=== PATIENT | female | born 1945 | race Caucasian/White ===

== ENCOUNTER 2021-08-11 07:31 | Emergency (ER) | payer OTHER ==
[~2021-08-11] VITALS: Ht 154.9 cm; Wt 50.8 kg
[2021-08-11 07:35] VITALS: BP 178/117
--- NOTE | 2021-08-11 07:37 | NUR ---
BIBA TO BED 8.
--- NOTE | 2021-08-11 07:47 | NUR ---
76/F BIBA WITH C/O NAUSEA AND VOMITING SINCE 6PM YESTERDAY. 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 PATIENT STATES SHE HAS BEEN FEELING WEAK AND LACK OF APPETITE. REPORTS A "FEW EPISODES OF CLEAR VOMIT" DENIES ABDOMINAL PAIN, N/V/D AT THIS TIME BUT STATES SHE IS WORRIED THE SYMPTOMS WILL RETURN. DENIES CP, SOB, URINARY SYMPTOMS.
[2021-08-11] MEDS ORDERED: NACL 0.9% 1,000 ML IV SCH (07:55)
[2021-08-11] MEDS ORDERED: METOCLOPRAMIDE 10 MG/2 ML INJ VIAL IVP ONE (08:30)
[2021-08-11 08:36] LABS: APPEARANCE,URINE CLEAR (CLEAR); BILIRUBIN,URINE NEGATIVE (NEGATIVE); BLOOD, URINE 1+ (NEGATIVE); COLOR,URINE YELLOW (YELLOW); LEUKOCYTE ESTERASE ,URINE NEGATIVE (NEGATIVE); NITRITE, URINE NEGATIVE (NEGATIVE); PH,URINE 7.5 (5.0-9.0); UGLUCOSE NEGATIVE (NEGATIVE)
[2021-08-11 08:41] LABS: WBC,URINE 0-5 /HPF (0-5)
[2021-08-11 09:06] LABS: ALBUMIN 3.6 g/dL (3.4-5.0); ANION GAP 19.1 (8-16); ASPARTATE AMINOTRANSFERASE 15 U/L (15-37); CARBON DIOXIDE 21.2 mmol/L (21-32); CHLORIDE 102 mmol/L (98-107); CREATININE 1.4 mg/dL (0.6-1.3); GLUCOSE 106 mg/dL (74-106); LIPASE 119 U/L (73-393); POTASSIUM 3.3 mmol/L (3.5-5.1); SODIUM SERUM 139 mmol/L (136-145); TOTAL BILIRUBIN 0.6 mg/dL (0.0-1.0); UREA NITROGEN, BLOOD 14 mg/dL (7-18)
[2021-08-11] MEDS ORDERED: METO50TA99 PO (09:14)
[2021-08-11] MEDS ORDERED: SYN.05 PO (09:14)
[2021-08-11] MEDS ORDERED: [UNRECOGNIZED DRUG - CODE] PO (09:14)
[2021-08-11] MEDS ORDERED: POTA10TA71 PO (09:14)
[2021-08-11] MEDS ORDERED: RIVA20TA PO (09:14)
[2021-08-11] MEDS ORDERED: FURO-570 PO (09:14)
[2021-08-11] MEDS ORDERED: AMIO100T3 PO (09:14)
[2021-08-11] MEDS ORDERED: SERT50TA PO (09:14)
[2021-08-11] MEDS ORDERED: ATOR20TA PO (09:14)
[2021-08-11] MEDS ORDERED: DILT30TA18 PO (09:14)
[2021-08-11] MEDS ORDERED: METOPROLOL 5 MG/5 ML VIAL IVP ONE ×2 (09:15→11:15)
[2021-08-11 09:23] LABS: BASOPHILS # (AUTO) 0.1 K/uL (0.00-0.22); BASOPHILS % (AUTO) 0.8 % (0.0-2.0); EOSINOPHILS # (AUTO) 0.1 K/uL (0-0.4); EOSINOPHILS % (AUTO) 0.6 % (0.0-4.0); HEMATOCRIT 36.2 % (36-48); HEMOGLOBIN 11.4 g/dL (12.0-16.0); LYMPHOCYTES # (AUTO) 1.2 K/uL (2.5-16.5); LYMPHOCYTES % (AUTO) 12.8 % (20.5-51.1); MEAN CORPUSCULAR HEMOGLOBIN 20 pg (27-31); MEAN CORPUSCULAR HGB CONC 32 g/dL (33-37); MEAN CORPUSCULAR VOLUME 64.9 fL (80-94); MONOCYTES # (AUTO) 0.6 K/uL (0.8-1.0); MONOCYTES % (AUTO) 6.1 % (1.7-9.3); NEUTROPHILS # (AUTO) 7.5 K/uL (1.8-7.7); NEUTROPHILS % (AUTO) 79.7 % (42.2-75.2); PLATELET COUNT (AUTO) 301 K/uL (140-450); RED BLOOD CELL COUNT(AUTO) 5.58 MIL/uL (4.20-5.40); RED CELL DISTRIBUTION WIDTH 19.4 % (11.6-13.7); WHITE BLOOD COUNT (AUTO) 9.4 K/uL (4.8-10.8)
--- NOTE | 2021-08-11 09:30 | NUR ---
Pt ambulated to bathroom with steady gait.
--- NOTE | 2021-08-11 10:10 | NUR ---
pt appears to resting with eyes closed. HOB lowered for comfort. pt on bedside monitor. will continue to monitor.
[2021-08-11] MEDS ORDERED: METOCLOPRAMIDE 10 MG/2 ML INJ VIAL IM ONE (10:15)
[2021-08-11] MEDS ORDERED: LABETALOL 100 MG/20 ML VIAL IVP ONE (12:00)
--- NOTE | 2021-08-11 12:00 | NUR ---
PATIENT AMBULATED TO RESTROOM WITH STEADY GAIT.
--- NOTE | 2021-08-11 13:29 | NUR ---
Patient to be transferred to [facility]. Is being transferred due to INSURANCE REQUEST. Receiving facility has accepting physician and available space. ER physician has signed transfer form. Patient or responsible libertarian has agreed to transfer and signed form. Patient belongings inventoried and will be sent with patient. Copy of nursing notes, lab reports, EKG, Physicians Orders to be sent with patient. Report called to JACKY at receiving facility. [facility] ambulance service has been called for transfer. ETA is 45-60 MIN.
--- NOTE | 2021-08-11 13:32 | NUR ---
PATIENT AMBULATED TO RESTROOM
[2021-08-11] MEDS ORDERED: ENALAPRILAT 2.5 MG/2 ML VIAL IVP ONE (13:35)
--- NOTE | 2021-08-11 13:45 | NUR ---
[facility] BEDSIDE TO TRANSFER PATIENT TO [facility].
[2021-08-11 14:00] VITALS: BP 191/120
== END 2021-08-11 14:00 | disposition short-term general hospital (02) ==
LOC: MED 07:31
DX: R11.2 Nausea with vomiting, unspecified (principal); Z20.822 Contact with and (suspected) exposure to COVID-19; I11.0 Hypertensive heart disease with heart failure; E87.6 Hypokalemia; J44.9 Chronic obstructive pulmonary disease, unspecified; I50.9 Heart failure, unspecified; F17.200 Nicotine dependence, unspecified, uncomplicated; Z95.0 Presence of cardiac pacemaker; Z90.49 Acquired absence of other specified parts of digestive tract; Z98.890 Other specified postprocedural states; Z79.899 Other long term (current) drug therapy
CPT/HCPCS: 36415; 80053; 81001; 83690; 84484; 84703; 85025; 87426; 93005; 96361; 96372; 96374; 96375; 96376; 99284; J2765; J3490; J7030; 81002

== ENCOUNTER 2021-10-15 14:14 | Inpatient (IN) | payer OTHER, SELFPAY ==
[~2021-10-15] VITALS: Ht 154.9 cm; Wt 49.9 kg
[~2021-10-15 14:14] MED LIST: AMIO100T3 PO; ATOR20TA PO; DILT30TA18 PO; FURO-570 PO; METO50TA99 PO; POTA10TA71 PO; RIVA20TA PO; SERT50TA PO; SYN.05 PO; [UNRECOGNIZED DRUG - CODE] PO
--- NOTE | 2021-10-15 15:00 | NUR ---
[facility] TO ER BED 7
[2021-10-15 15:02] VITALS: BP 200/116
--- NOTE | 2021-10-15 15:12 | NUR ---
PT BIB [facility] C/O SOB, COUGH N/V X 1 WEEK PAIN 0/10 [facility] GAVE HHN. PT SKIN IS INTACT, FLUSHED/WARM/DRY; AAOX4, PERRL, UNSTEADY GAIT-S/P SOB; LUNGS BILATERAL RHONCHI AND WHEZZING NOTED, RT CALLED, BREATHING LABORED, BL PERIPHERAL PULSES PRESENT; BS ACTIVE X4, MILD TENDERNESS TO PALPATION. PT STATES 0/10 PAIN AT THIS TIME; VSS; PATIENT POSITIONED FOR COMFORT; HOB ELEVATED; BEDRAILS UP X2; BED DOWN.
--- NOTE | 2021-10-15 15:15 | NUR ---
PSYCHOLOGICAL SCIENCE PROFESSOR CALLED TO BEDSIDE PATIENT PRESENTING WITH SOB RR 24-28 BPM SATURATION 97% ROOM AIR BREATH SOUNDS COARSE RHONCHI BILATERAL HHN THERAPY REQUIRED FOR SECRETION MOBILZATION IMPROVED AERATION AND DECREASED SOB ARIEL VILLANUEVA/RN NOTIFIED
--- NOTE | 2021-10-15 15:20 | NUR ---
ARIEL VILLANUEVA/RN TO ORDER HHN THERAPY OR ADVIS ERMD
[2021-10-15] MEDS ORDERED: ALBUTEROL SULFATE/IPRATROPIU 3 ML SOL IH ONE (15:22)
--- NOTE | 2021-10-15 15:26 | NUR ---
RT AT BEDSIDE.
--- NOTE | 2021-10-15 15:26 | NUR ---
PT BIB [facility] C/O SOB, COUGH N/V X 1 WEEK PAIN 0/10 [facility] GAVE HHN. NKA PMH: COPD, HTN
--- NOTE | 2021-10-15 15:45 | NUR ---
DR VASQUES AT BEDSIDE.
[2021-10-15] MEDS ORDERED: NACL 0.9% 500 ML IV ONE (15:50)
[2021-10-15] MEDS ORDERED: methylPREDNISolone SS 125 MG/2 ML VIAL IVP ONE (15:50)
[2021-10-15] MEDS ORDERED: ONDANSETRON 4 MG/2 ML VIAL IVP ONE (16:10)
[2021-10-15 16:48] LABS: BASOPHILS # (AUTO) 0.1 K/uL (0.00-0.22); BASOPHILS % (AUTO) 0.5 % (0.0-2.0); EOSINOPHILS % (AUTO) 0.1 % (0.0-4.0); HEMATOCRIT 39.4 % (36-48); HEMOGLOBIN 12.5 g/dL (12.0-16.0); LYMPHOCYTES # (AUTO) 1.4 K/uL (2.5-16.5); LYMPHOCYTES % (AUTO) 12.1 % (20.5-51.1); MEAN CORPUSCULAR HEMOGLOBIN 21 pg (27-31); MEAN CORPUSCULAR HGB CONC 32 g/dL (33-37); MEAN CORPUSCULAR VOLUME 67.1 fL (80-94); MONOCYTES # (AUTO) 0.4 K/uL (0.8-1.0); MONOCYTES % (AUTO) 3.7 % (1.7-9.3); NEUTROPHILS # (AUTO) 9.7 K/uL (1.8-7.7); NEUTROPHILS % (AUTO) 83.6 % (42.2-75.2); PLATELET COUNT (AUTO) 331 K/uL (140-450); RED BLOOD CELL COUNT(AUTO) 5.88 MIL/uL (4.20-5.40); RED CELL DISTRIBUTION WIDTH 20.6 % (11.6-13.7); WHITE BLOOD COUNT (AUTO) 11.6 K/uL (4.8-10.8)
[2021-10-15 16:56] LABS: ALBUMIN 3.9 g/dL (3.4-5.0); ANION GAP 22.2 (8-16); ASPARTATE AMINOTRANSFERASE 19 U/L (15-37); CARBON DIOXIDE 21.7 mmol/L (21-32); CHLORIDE 100 mmol/L (98-107); CREATININE 2.2 mg/dL (0.6-1.3); GLUCOSE 154 mg/dL (74-106); LIPASE 172 U/L (73-393); SODIUM SERUM 141 mmol/L (136-145); TOTAL BILIRUBIN 0.6 mg/dL (0.0-1.0); UREA NITROGEN, BLOOD 21 mg/dL (7-18)
[2021-10-15 16:59] LABS: POTASSIUM 2.9 mmol/L (3.5-5.1)
[2021-10-15] MEDS ORDERED: POTASSIUM CHLORIDE 20% 40 MEQ/15 ML UDC PO SCH ×2 (17:00→17:30)
[2021-10-15] MEDS ORDERED: NACL 0.9% 1,000 ML IV ONE (17:10)
[2021-10-15] MEDS ORDERED: MORPHINE SULFATE 2 MG/ML SYR IVP ONE (17:10)
[2021-10-15] MEDS ORDERED: AZITHROMYCIN 500 MG in DEXTROSE 5% 250 ML IV ONE (17:20)
[2021-10-15] MEDS ORDERED: cefTRIAXone 1,000 MG VIAL ONE (17:53)
[2021-10-15] MEDS ORDERED: hydrALAZINE 20 MG/ML VIAL IVP ONE (18:00)
--- NOTE | 2021-10-15 18:00 | NUR ---
PT SOILED WITH BM AND URINE. PT CLEANED, NEW LINEN AND GAWN.
--- NOTE | 2021-10-15 18:30 | NUR ---
PT TO CT VIA [facility].
[2021-10-15] MEDS ORDERED: AZITHROMYCIN 500 MG INJ VIAL IV ONE (18:41)
--- NOTE | 2021-10-15 19:27 | NUR ---
GAVE REPORT TO HELEN CAICEDO.
[2021-10-15] MEDS ORDERED: KCL 20 MEQ/WATER INJ PREMIX 200 ML IV PRN (20:45)
[2021-10-15] MEDS ORDERED: HYDROcodone/APAP 5/325 MG 1 TAB TAB PO PRN (20:45)
[2021-10-15] MEDS ORDERED: MAG SULF 2000 MG/WATER PREMIX 50 ML IV PRN (20:45)
[2021-10-15] MEDS ORDERED: ACETAMINOPHEN 325 MG TAB PO PRN (20:45)
[2021-10-15] MEDS ORDERED: MAGNESIUM OXIDE 400 MG TAB PO PRN (20:45)
[2021-10-15] MEDS ORDERED: ONDANSETRON 4 MG/2 ML VIAL IVP PRN (20:45)
[2021-10-15] MEDS ORDERED: POTASSIUM CHLORIDE 10 MEQ TABER PO PRN (20:45)
[2021-10-15] MEDS ORDERED: hydrALAZINE 20 MG/ML VIAL IVP PRN (20:50)
--- NOTE | 2021-10-16 00:10 | NUR ---
PT'S DIAPER AND LINENS CHANGED. PT STATES SHE IS STILL NAUSEOUS; WAS GIVEN ZOFRAN 2 HRS AGO.
[2021-10-16] MEDS ORDERED: LORazepam 2 MG/ML VIAL IVP PRN (00:50)
[2021-10-16] MEDS ORDERED: PROCHLORPERAZINE 10 MG/2 ML VIAL IVP PRN (00:50)
[2021-10-16] MEDS ORDERED: diphenhydrAMINE 50 MG/ML VIAL IVP ONE (00:50)
[2021-10-16] MEDS ORDERED: ONDANSETRON 4 MG/2 ML VIAL IVP PRN (00:50)
--- NOTE | 2021-10-16 01:51 | NUR ---
PT WAS GIVEN MEDICATION FOR NAUSEA AND TO SLEEP. PT IS NOW SLEEPING COMFORTABLY IN BED. WITH HOB RAISED, RAILS UP X2, AND BED IN LOWEST SETTING.
--- NOTE | 2021-10-16 07:25 | NUR ---
REPORT GIVEN TO YAEL ANDREW
--- NOTE | 2021-10-16 08:00 | NUR ---
WALKED PT TO THE BATHROOM, URINE COLLECTED. LINEN CHANGED.
--- NOTE | 2021-10-16 08:16 | NUR ---
LAB AT BEDSIDE.
[2021-10-16 08:55] LABS: APPEARANCE,URINE CLEAR (CLEAR); BILIRUBIN,URINE NEGATIVE (NEGATIVE); BLOOD, URINE TRACE-I (NEGATIVE); COLOR,URINE YELLOW (YELLOW); LEUKOCYTE ESTERASE ,URINE NEGATIVE (NEGATIVE); NITRITE, URINE NEGATIVE (NEGATIVE); UGLUCOSE 1+ (NEGATIVE)
[2021-10-16] MEDS ORDERED: predniSONE 20 MG TAB PO SCH (09:00)
[2021-10-16 09:05] LABS: BASOPHILS # (AUTO) 0.1 K/uL (0.00-0.22); BASOPHILS % (AUTO) 0.6 % (0.0-2.0); HEMATOCRIT 39.2 % (36-48); HEMOGLOBIN 12.3 g/dL (12.0-16.0); LYMPHOCYTES # (AUTO) 0.5 K/uL (2.5-16.5); LYMPHOCYTES % (AUTO) 3.9 % (20.5-51.1); MEAN CORPUSCULAR HEMOGLOBIN 21 pg (27-31); MEAN CORPUSCULAR HGB CONC 31 g/dL (33-37); MEAN CORPUSCULAR VOLUME 67.5 fL (80-94); MONOCYTES # (AUTO) 0.2 K/uL (0.8-1.0); MONOCYTES % (AUTO) 1.8 % (1.7-9.3); NEUTROPHILS # (AUTO) 11.3 K/uL (1.8-7.7); NEUTROPHILS % (AUTO) 93.7 % (42.2-75.2); PLATELET COUNT (AUTO) 278 K/uL (140-450); RED BLOOD CELL COUNT(AUTO) 5.81 MIL/uL (4.20-5.40); RED CELL DISTRIBUTION WIDTH 20.5 % (11.6-13.7); WHITE BLOOD COUNT (AUTO) 12.1 K/uL (4.8-10.8)
[2021-10-16 09:11] LABS: ALBUMIN 3.8 g/dL (3.4-5.0); ANION GAP 18.7 (8-16); ASPARTATE AMINOTRANSFERASE 20 U/L (15-37); CARBON DIOXIDE 23.1 mmol/L (21-32); CHLORIDE 110 mmol/L (98-107); CREATININE 1.8 mg/dL (0.6-1.3); GLUCOSE 118 mg/dL (74-106); MAGNESIUM 1.9 mg/dL (1.8-2.4); POTASSIUM 3.8 mmol/L (3.5-5.1); SODIUM SERUM 148 mmol/L (136-145); TOTAL BILIRUBIN 0.4 mg/dL (0.0-1.0); UREA NITROGEN, BLOOD 21 mg/dL (7-18)
--- NOTE | 2021-10-16 10:45 | NUR ---
PATIENT HAS BEEN SCREENED AND CATEGORIZED MODERATE NUTRITION RISK. PATIENT WILL BE SEEN WITHIN 3-5 DAYS OF ADMISSION. 10/18/21 10/20/[address]
[2021-10-16] MEDS ORDERED: AZIT250T11 PO (10:49)
[2021-10-16] MEDS ORDERED: PRED20TA5 PO (10:49)
[2021-10-16] MEDS ORDERED: ALBU0.0912 INH (10:49)
--- NOTE | 2021-10-16 12:34 | NUR ---
CALLED AND LEFT A MESSAGE FOR THE SON YAAKOV TO [employer] OPERATOR THE PT. PT HAS DC ORDERS.
--- NOTE | 2021-10-16 12:51 | NUR ---
SPOKE WITH THE SON, HE WILL BE HERE WITHIN 1 HOUR AND 15 MIN WITH HER CLOTHES.
[2021-10-16 12:55] VITALS: BP 181/84
--- NOTE | 2021-10-16 13:09 | NUR ---
PT MOVED FROM ROOM 7 TO ROOM 13
--- NOTE | 2021-10-16 14:24 | NUR ---
Patient discharged with v/s stable. Written and verbal after care instructions given and explained. Patient verbalized understanding. Wheel Chair Assisted with to car. All questions addressed prior to discharge. Advised to follow up with PMD.
--- NOTE | 2021-10-16 14:24 | NUR ---
Bilateral hand IV's discontinued
--- NOTE | 2021-10-16 14:25 | NUR ---
Chart checked and completed. The patient's care was reviewed and supervised by Liss Huang RN.
[2021-10-16] MEDS ORDERED: AZITHROMYCIN 500 MG in DEXTROSE 5% 250 ML IV SCH (18:00)
[2021-10-16] MEDS ORDERED: METOPROLOL 50 MG TAB PO SCH (21:00)
[2021-10-16] MEDS ORDERED: DILTIAZEM 30 MG TAB PO SCH (21:00)
[2021-10-17] MEDS ORDERED: LEVOTHYROXINE 0.025 MG TAB PO SCH (06:30)
[2021-10-17] MEDS ORDERED: RIVAROXABAN 10 MG TAB PO SCH (09:00)
[2021-10-17] MEDS ORDERED: AMIODARONE 200 MG TAB PO SCH (09:00)
[2021-10-17] MEDS ORDERED: SERTRALINE 50 MG TAB PO SCH (09:00)
== END 2021-10-16 14:24 | disposition home or self-care (01) | DRG 191 ==
LOC: MED 14:14 → MTU 20:46
PROVIDERS: ADMIT Internal Medicine; ATTEND Internal Medicine
DX: J44.1 Chronic obstructive pulmonary disease with (acute) exacerbation (principal); N17.9 Acute kidney failure, unspecified; I13.0 Hypertensive heart and chronic kidney disease with heart failure and stage 1 through stage 4 chronic kidney disease, or unspecified chronic kidney disease; N13.2 Hydronephrosis with renal and ureteral calculous obstruction; I50.9 Heart failure, unspecified; K21.9 Gastro-esophageal reflux disease without esophagitis; F17.210 Nicotine dependence, cigarettes, uncomplicated; E78.5 Hyperlipidemia, unspecified; N94.89 Other specified conditions associated with female genital organs and menstrual cycle; E03.9 Hypothyroidism, unspecified; N18.30 Chronic kidney disease, stage 3 unspecified; Z20.822 Contact with and (suspected) exposure to COVID-19; E87.6 Hypokalemia; I48.91 Unspecified atrial fibrillation; Z95.0 Presence of cardiac pacemaker; Q63.1 Lobulated, fused and horseshoe kidney; Z79.899 Other long term (current) drug therapy; Z79.01 Long term (current) use of anticoagulants; Z90.49 Acquired absence of other specified parts of digestive tract
CPT/HCPCS: 36415; 71045; 74018; 80053; 81001; 83605; 83690; 83735; 83880; 85025; 87086; 94640; 96361; 96365; 96366; 96367; 96375; 99285; J0360; J0456; J0696; J0780; J1200; J1644; J2060; J2270; J2405; J2930; J7060; J7512; Q0092; U0003

== ENCOUNTER 2023-11-07 21:09 | Emergency (ER) | payer OTHER ==
[~2023-11-07] VITALS: Ht 165.1 cm; Wt 49.9 kg
[~2023-11-07 21:09] MED LIST changes: +ALBU0.0912 INH; +AZIT250T11 PO; +PRED20TA5 PO
[2023-11-07 21:21] VITALS: BP 150/84; PULSE 84; RESP 22; TEMP 98.1; O2SAT 96
[2023-11-07] MEDS ORDERED: NACL 0.9% 1,000 ML IV ONE (22:10)
[2023-11-07] MEDS ORDERED: METOCLOPRAMIDE 10 MG/2 ML INJ VIAL IVP ONE (22:10)
[2023-11-07 22:48] LABS: BASOPHILS # (AUTO) 0.1 K/uL (0.00-0.22); EOSINOPHILS % (AUTO) 0.4 % (0.0-4.0); HEMATOCRIT 35.4 % (36-48); HEMOGLOBIN 11.3 g/dL (12.0-16.0); LYMPHOCYTES # (AUTO) 2.1 K/uL (2.5-16.5); LYMPHOCYTES % (AUTO) 21.6 % (20.5-51.1); MEAN CORPUSCULAR HEMOGLOBIN 20 pg (27-31); MEAN CORPUSCULAR HGB CONC 32 g/dL (33-37); MEAN CORPUSCULAR VOLUME 63.3 fL (80-94); MONOCYTES # (AUTO) 0.5 K/uL (0.8-1.0); MONOCYTES % (AUTO) 5.5 % (1.7-9.3); NEUTROPHILS # (AUTO) 6.9 K/uL (1.8-7.7); NEUTROPHILS % (AUTO) 71.5 % (42.2-75.2); PLATELET COUNT (AUTO) 333 K/uL (140-450); RED BLOOD CELL COUNT(AUTO) 5.59 MIL/uL (4.20-5.40); WHITE BLOOD COUNT (AUTO) 9.7 K/uL (4.8-10.8)
[2023-11-07 23:06] LABS: LACTIC ACID 1.5 mmol/L (0.4-2.0)
[2023-11-07 23:08] LABS: FLU A ANTIGEN negative (NEGATIVE); FLU B ANTIGEN NEGATIVE (NEGATIVE)
[2023-11-07 23:12] LABS: ANION GAP 18.3 (8-16); CALCIUM 9.6 mg/dL (8.5-10.1); CARBON DIOXIDE 22.9 mmol/L (21-32); CHLORIDE 100 mmol/L (98-107); GLUCOSE 110 mg/dL (74-106); POTASSIUM 3.2 mmol/L (3.5-5.1); SODIUM SERUM 138 mmol/L (136-145); UREA NITROGEN, BLOOD 26 mg/dL (7-18)
[2023-11-07 23:15] LABS: ALANINE AMINOTRANSFERASE 10 U/L (12-78); ALBUMIN 3.7 g/dL (3.4-5.0); ALKALINE PHOSPHATASE 108 U/L (50-136); ASPARTATE AMINOTRANSFERASE 16 U/L (15-37); BILIRUBIN,DIRECT 0.2 mg/dL (0.0-0.3); LIPASE 50 U/L (16-77); TOTAL BILIRUBIN 0.8 mg/dL (0.0-1.0); TOTAL PROTEIN, SERUM 8.4 g/dL (6.4-8.2)
[2023-11-07 23:23] LABS: CREATININE 1.5 mg/dL (0.6-1.3)
[2023-11-08 00:33] VITALS: O2SAT 97
[2023-11-08] MEDS ORDERED: METOCLOPRAMIDE 10 MG/2 ML INJ VIAL IVP ONE (02:30)
[2023-11-08 03:30] VITALS: O2SAT 97
[2023-11-08] MEDS ORDERED: METO-486 PO (03:54)
[2023-11-08 05:31] LABS: APPEARANCE,URINE CLEAR (CLEAR); BILIRUBIN,URINE NEGATIVE (NEGATIVE); BLOOD, URINE NEGATIVE (NEGATIVE); COLOR,URINE YELLOW (YELLOW); LEUKOCYTE ESTERASE ,URINE NEGATIVE (NEGATIVE); NITRITE, URINE NEGATIVE (NEGATIVE); PROTEIN,URINE NEGATIVE (NEGATIVE); UGLUCOSE NEGATIVE (NEGATIVE); UROBILINOGEN,URINE 0.2 EU/dL (0.2 - 1)
[2023-11-08 09:40] VITALS: BP 173/92; PULSE 82; RESP 17; TEMP 98.1; O2SAT 97
== END 2023-11-08 08:32 | disposition home or self-care (01) ==
LOC: MED 21:09
DX: R11.2 Nausea with vomiting, unspecified (principal); Z20.822 Contact with and (suspected) exposure to COVID-19; J44.9 Chronic obstructive pulmonary disease, unspecified; I11.0 Hypertensive heart disease with heart failure; I50.9 Heart failure, unspecified; I48.91 Unspecified atrial fibrillation; Z79.899 Other long term (current) drug therapy; Z79.2 Long term (current) use of antibiotics; Z79.01 Long term (current) use of anticoagulants
CPT/HCPCS: 36415; 71045; 74176; 80048; 80076; 81003; 83605; 83690; 84484; 85025; 87426; 87804; 96361; 96374; 96376; 99285; J2765; J7030

== ENCOUNTER 2024-03-31 21:39 | Observation (INO) | payer OTHER ==
[~2024-03-31] VITALS: Ht 154.9 cm; Wt 40.8 kg
[~2024-03-31 21:39] MED LIST changes: +METO-486 PO
[2024-03-31 21:43] VITALS: BP 124/75; PULSE 96; RESP 18; TEMP 98; O2SAT 98
[2024-03-31 22:42] LABS: BASOPHILS % (AUTO) 0.4 % (0.0-2.0); EOSINOPHILS % (AUTO) 0.3 % (0.0-4.0); HEMATOCRIT 36.2 % (36-48); HEMOGLOBIN 11.1 g/dL (12.0-16.0); LYMPHOCYTES # (AUTO) 1.2 K/uL (2.5-16.5); LYMPHOCYTES % (AUTO) 11.3 % (20.5-51.1); MEAN CORPUSCULAR HEMOGLOBIN 18 pg (27-31); MEAN CORPUSCULAR HGB CONC 31 g/dL (33-37); MEAN CORPUSCULAR VOLUME 56.9 fL (80-94); MONOCYTES # (AUTO) 0.9 K/uL (0.8-1.0); MONOCYTES % (AUTO) 7.9 % (1.7-9.3); NEUTROPHILS # (AUTO) 8.7 K/uL (1.8-7.7); NEUTROPHILS % (AUTO) 80.1 % (42.2-75.2); PLATELET COUNT (AUTO) 334 K/uL (140-450); RED BLOOD CELL COUNT(AUTO) 6.36 MIL/uL (4.20-5.40); RED CELL DISTRIBUTION WIDTH 22.6 % (11.6-13.7); WHITE BLOOD COUNT (AUTO) 10.9 K/uL (4.8-10.8)
[2024-03-31 22:50] LABS: ANION GAP 16.8 (8-16); CALCIUM 9.2 mg/dL (8.5-10.1); CHLORIDE 92 mmol/L (98-107); CREATININE 1.6 mg/dL (0.6-1.3); GLUCOSE 133 mg/dL (74-106); SODIUM SERUM 134 mmol/L (136-145); UREA NITROGEN, BLOOD 25 mg/dL (7-18)
[2024-03-31 22:54] LABS: ALBUMIN 3.8 g/dL (3.4-5.0); BILIRUBIN,DIRECT 0.3 mg/dL (0.0-0.3); TOTAL BILIRUBIN 0.7 mg/dL (0.0-1.0); TOTAL PROTEIN, SERUM 7.6 g/dL (6.4-8.2)
[2024-03-31 22:57] LABS: POTASSIUM 2.8 mmol/L (3.5-5.1)
[2024-03-31] MEDS: POTASSIUM CHLORIDE 10 MEQ TABER PO ONE (23:00)
[2024-03-31] MEDS: METOCLOPRAMIDE 10 MG/2 ML INJ VIAL IM ONE (23:34)
[2024-03-31] MEDS: NACL 0.9% 1,000 ML IV ONE (23:50)
[2024-04-01] MEDS: POTASSIUM CHL 20 MEQ/NACL 0.9% 1,000 ML IV ONE (00:40)
[2024-04-01] MEDS ORDERED: ONDANSETRON 4 MG/2 ML VIAL IVP PRN (02:35)
[2024-04-01] MEDS ORDERED: ACETAMINOPHEN 325 MG TAB PO PRN (02:35)
[2024-04-01] MEDS ORDERED: ATOR10TA PO (06:12)
[2024-04-01] MEDS ORDERED: CARER90 PO (06:27)
[2024-04-01] MEDS: POTASSIUM CHL 20MEQ/D5-NS 1,000 ML IV SCH (06:40)
[2024-04-01] MEDS: METOCLOPRAMIDE 10 MG/2 ML INJ VIAL IVP SCH (06:43)
[2024-04-01 08:10] LABS: APPEARANCE,URINE CLEAR (CLEAR); BILIRUBIN,URINE NEGATIVE (NEGATIVE); BLOOD, URINE TRACE-I (NEGATIVE); COLOR,URINE YELLOW (YELLOW); LEUKOCYTE ESTERASE ,URINE 1+ (NEGATIVE); NITRITE, URINE NEGATIVE (NEGATIVE); PROTEIN,URINE NEGATIVE (NEGATIVE); UGLUCOSE NEGATIVE (NEGATIVE); UROBILINOGEN,URINE 0.2 EU/dL (0.2 - 1)
[2024-04-01 08:17] LABS: BACTERIA,URINE OCCASSIONAL /HPF (None Seen); RBC,URINE 0-5 /HPF (0-5); SQUAMOUS EPITHELIAL CELL,UR 4-10 (MOD) /LPF (0-3 (FEW)); WBC,URINE 0-5 /HPF (0-5)
[2024-04-01] MEDS: FUROSEMIDE 40 MG TAB PO SCH (08:45)
[2024-04-01] MEDS: ATORVASTATIN 20 MG TAB PO SCH (08:45)
[2024-04-01] MEDS: RIVAROXABAN 10 MG TAB PO SCH (08:46)
[2024-04-01] MEDS: AMIODARONE 200 MG TAB PO SCH (08:46)
[2024-04-01] MEDS: LEVOTHYROXINE 0.025 MG TAB PO SCH (08:47)
[2024-04-01] MEDS: SERTRALINE 50 MG TAB PO SCH (08:47)
[2024-04-01] MEDS: METOPROLOL 50 MG TAB PO SCH (08:47)
[2024-04-01] MEDS ORDERED: CRUSHER, PILL MC ONE (08:49)
[2024-04-01 18:57] LABS: BASOPHILS % (AUTO) 0.4 % (0.0-2.0); EOSINOPHILS % (AUTO) 0.4 % (0.0-4.0); HEMATOCRIT 34.3 % (36-48); HEMOGLOBIN 10.2 g/dL (12.0-16.0); LYMPHOCYTES # (AUTO) 1.5 K/uL (2.5-16.5); LYMPHOCYTES % (AUTO) 14.2 % (20.5-51.1); MEAN CORPUSCULAR HEMOGLOBIN 17 pg (27-31); MEAN CORPUSCULAR HGB CONC 30 g/dL (33-37); MEAN CORPUSCULAR VOLUME 58.4 fL (80-94); MONOCYTES # (AUTO) 0.9 K/uL (0.8-1.0); MONOCYTES % (AUTO) 8.8 % (1.7-9.3); NEUTROPHILS # (AUTO) 7.9 K/uL (1.8-7.7); NEUTROPHILS % (AUTO) 76.2 % (42.2-75.2); PLATELET COUNT (AUTO) 270 K/uL (140-450); RED BLOOD CELL COUNT(AUTO) 5.86 MIL/uL (4.20-5.40); RED CELL DISTRIBUTION WIDTH 22.3 % (11.6-13.7); WHITE BLOOD COUNT (AUTO) 10.4 K/uL (4.8-10.8)
[2024-04-01 19:25] LABS: ANION GAP 11.2 (8-16); CALCIUM 7.8 mg/dL (8.5-10.1); CARBON DIOXIDE 28.5 mmol/L (21-32); CHLORIDE 98 mmol/L (98-107); CREATININE 1.2 mg/dL (0.6-1.3); GLUCOSE 128 mg/dL (74-106); POTASSIUM 3.7 mmol/L (3.5-5.1); SODIUM SERUM 134 mmol/L (136-145); UREA NITROGEN, BLOOD 20 mg/dL (7-18)
[2024-04-01] MEDS ORDERED: ONDA-188 SL (19:34)
[2024-04-02 06:39] LABS: BASOPHILS % (AUTO) 0.2 % (0.0-2.0); EOSINOPHILS % (AUTO) 0.4 % (0.0-4.0); HEMATOCRIT 31.1 % (36-48); HEMOGLOBIN 9.4 g/dL (12.0-16.0); LYMPHOCYTES # (AUTO) 1.6 K/uL (2.5-16.5); LYMPHOCYTES % (AUTO) 19.3 % (20.5-51.1); MEAN CORPUSCULAR HEMOGLOBIN 17 pg (27-31); MEAN CORPUSCULAR HGB CONC 30 g/dL (33-37); MEAN CORPUSCULAR VOLUME 57.3 fL (80-94); MONOCYTES # (AUTO) 0.8 K/uL (0.8-1.0); NEUTROPHILS % (AUTO) 71.1 % (42.2-75.2); PLATELET COUNT (AUTO) 231 K/uL (140-450); RED BLOOD CELL COUNT(AUTO) 5.43 MIL/uL (4.20-5.40); RED CELL DISTRIBUTION WIDTH 21.8 % (11.6-13.7); WHITE BLOOD COUNT (AUTO) 8.4 K/uL (4.8-10.8)
[2024-04-02 07:05] LABS: ALANINE AMINOTRANSFERASE 12 U/L (12-78); ALKALINE PHOSPHATASE 94 U/L (50-136); ASPARTATE AMINOTRANSFERASE 13 U/L (15-37); CALCIUM 7.9 mg/dL (8.5-10.1); CARBON DIOXIDE 28.7 mmol/L (21-32); CHLORIDE 103 mmol/L (98-107); CREATININE 1.1 mg/dL (0.6-1.3); GLUCOSE 116 mg/dL (74-106); MAGNESIUM 1.8 mg/dL (1.8-2.4); SODIUM SERUM 139 mmol/L (136-145); TOTAL BILIRUBIN 0.5 mg/dL (0.0-1.0); TOTAL PROTEIN, SERUM 6.1 g/dL (6.4-8.2); UREA NITROGEN, BLOOD 16 mg/dL (7-18)
[2024-04-02 07:46] LABS: POTASSIUM 2.7 mmol/L (3.5-5.1)
[2024-04-02] MEDS: KCL 20 MEQ IN 100 mL PREMIX 100 ML IV PRN (07:56)
[2024-04-02] MEDS ORDERED: POTASSIUM CHL 20MEQ/D5-NS 1,000 ML IV SCH ×2 (08:15→08:40)
[2024-04-02] MEDS: NACL 0.45% 1,000 ML IV SCH (08:59)
[2024-04-02] MEDS: POTASSIUM CHLORIDE 10 MEQ TABER PO SCH (09:54)
[2024-04-02 12:48] VITALS: BP 137/92; PULSE 84; RESP 18; TEMP 97.7
[2024-04-02 13:04] VITALS: BP 136/88; PULSE 78; RESP 16; TEMP 98; O2SAT 99
== END 2024-04-02 13:25 | disposition home or self-care (01) ==
LOC: MED 21:39 → MTU 04-01 02:36
PROVIDERS: ADMIT Hospitalist; ATTEND Hospitalist
DX: N17.9 Acute kidney failure, unspecified (principal); I12.9 Hypertensive chronic kidney disease with stage 1 through stage 4 chronic kidney disease, or unspecified chronic kidney disease; N18.30 Chronic kidney disease, stage 3 unspecified; E87.6 Hypokalemia; R11.2 Nausea with vomiting, unspecified; R19.7 Diarrhea, unspecified; J44.9 Chronic obstructive pulmonary disease, unspecified; F17.210 Nicotine dependence, cigarettes, uncomplicated; I48.91 Unspecified atrial fibrillation; Z95.0 Presence of cardiac pacemaker; Z79.899 Other long term (current) drug therapy
CPT/HCPCS: 36415; 74022; 80048; 80053; 80076; 81001; 83690; 83735; 85025; 87086; 93005; 96365; 96366; 96372; 96375; 96376; 99284; G0378; J2765; J7030; J3480; J7070